=== PATIENT | male | born 1990 | race Two or more races ===

== ENCOUNTER 2023-01-06 20:10 | Emergency (ER) | payer MEDICAID, OTHER, SELFPAY ==
[2023-01-06 20:49] VITALS: BP 131/70; PULSE 70; RESP 16; TEMP 36.9; O2SAT 99; BMI 27.7
--- NOTE | 2023-01-06 20:49 | ED_ITS ---
HPI - GI Bleed General Chief complaint: General Medical Stated complaint: rectal bleeding Time Seen by Provider: 01/06/23 21:48 Source: patient Mode of arrival: ambulatory History of Present Illness HPI Narrative: 82-year-old male presents with rectal bleeding. Related Data Allergies Allergy/AdvReac Type Severity Reaction Status Date / Time No Known Allergies Allergy Verified 01/06/23 20:52 Review of Systems Review of Systems: Pertinent positives and negatives as stated in HPI PMFSH Past Medical History Source: nursing notes reviewed Social History Social History Advance Directives: No Advance Directives Information Provided: No Physical Exam Vital Signs: Vital Signs: Last Vital Signs Temp 98.4 F 01/06/23 20:49 Pulse 70 01/06/23 20:49 Resp 16 01/06/23 20:49 BP 131/70 01/06/23 20:49 Pulse Ox 99 01/06/23 20:49 O2 Del Method Room Air 01/06/23 20:49 BMI result Body Mass Index 27.7 VITAL SIGNS: Reviewed. GENERAL: Well developed, well nourished, in no acute distress. HEAD: Normocephalic/atraumatic EYES: PERRLA, EOMI LUNGS: Normal breath sounds. No adventitious sounds or accessory muscle use. SpO2<99> CARDIOVASCULAR: Regular rate and rhythm without noted murmurs ABDOMEN: Soft, non-tender, non-distended with bowel sounds. GIULIANA: There is obvious thrombosed hemorrhoid MUSCULOSKELETAL: No tenderness, deformities, or effusions noted on gross inspection. EXTREMITIES: No cyanosis, clubbing or edema. SKIN: Inspection of the skin reveals no rashes NEUROLOGIC: Alert and oriented x 4. Strength and sensation to light touch were grossly intact x 4. Course Course Course Narrative: this is a rapid medical exam. Defer additional HPI, ROS, PE to prior provider. 32-year-old male with a history of hemorrhoids here with complaints of rectal bleeding, pain in rectum which began yesterday. Patient reports it was a large amount. No abdominal pain, nausea/vomiting. Unable to visualize in triage. VSS Medications Administered Discontinued Medications Generic Name Dose Route Start Last Admin Trade Name Freq PRN Reason Stop Dose Admin Lidocaine/Epinephrine 10 ml 01/06/23 23:03 01/06/23 23:05 Lidocaine Hcl 1%/Epi 1:100,000 10 Ml Vial SUBCUT 01/06/23 23:04 10 ml ONCE ONE Administration Medical Decision Making Medical Decision Making [facility] Narrative: 32-year-old male with history and clinical presentation consistent with thrombosed hemorrhoid, was anesthetized is thoroughly with 1% lidocaine with epi and then small incision with a 11 blade with complete removal of thrombosis. There is no further bleeding noted and patient was discharged Differential Diagnosis Differential Diagnoses: The differential diagnosis associated with the presentation includes Please see the discussion Admission/Observation Consideration of admission/observation: Escalation of care including admission/observation considered Please see the discussion above Discharge Plan Discharge Clinical Impression: Hemorrhoid thrombosis Patient Disposition: Home, Self-Care Instructions: Hemorrhoids (ED) Additional Instructions: 1. Tylenol/ibuprofeno de venta ojce, seg?n sea necesario para controlar el dolor. 2. Seguimiento con m?dico de atenci?n primaria el lunes por la ma?ronn. Regrese a la ellen de emergencias si los s?ntomas empeoran. 1. [id number] Tylenol/ibuprofen as needed for pain control. 2. Follow-up with primary care doctor on Sunday morning. Return to the ER for any worsening symptoms. Print Language: Hebrew
[2023-01-06] MEDS: Lidocaine HCl 1%/Epi 1:100,000 10 ML VIAL SUBCUT (23:05)
[2023-01-06 23:46] VITALS: BP 122/75; PULSE 64; RESP 18; O2SAT 99
== END 2023-01-06 23:50 | disposition home or self-care (01) ==
PROVIDERS: Emergency Provider Student in an Organized Health Care Education/Training Program
DX: K64.5 Perianal venous thrombosis (principal); K62.89 Other specified diseases of anus and rectum
CPT/HCPCS: 46083; 99284